=== PATIENT | female | born 1990 | race American Indian/Alaskan Native ===

== ENCOUNTER 2018-09-06 16:28 | Outpatient (CLI) | payer MEDICAID ==
[2018-09-06 16:56] LABS: Hematocrit 27.4 % (30.3-42.9); Mean Corpuscular HGB Conc 33 % (30-34); Mean Corpuscular Volume 79 fl (79-97); Platelet Count 307 K/mm3 (140-440); Red Blood Count 3.47 M/mm3 (3.65-5.03); Red Cell Distribution Width 15.3 % (13.2-15.2)
[2018-09-06 17:03] LABS: Mean Corpuscular Hemoglobin 26 pg (28-32)
[2018-09-06] MEDS ORDERED: LACTATED RINGERS 500 ML IV ONE (18:14)
[2018-09-06 18:17] VITALS: BP 104/54
[2018-09-06] MEDS ORDERED: DIFLUCAN PO ONE (19:29)
[2018-09-06 19:54] LABS: Bilirubin,Urine NEG (Negative); Blood,Urine NEG (Negative); Color,Urine Yellow (Yellow); Protein,Urine <15 mg/dL mg/dL (Negative)
[2018-09-06 19:55] LABS: Bacteria,Urine 2+ /HPF (Negative); Mucus,Urine FEW /HPF
== END 2018-09-06 20:15 | disposition home or self-care (01) ==
LOC: TRG 16:28
PROVIDERS: ATTEND Obstetrics & Gynecology
DX: O47.02 False labor before 37 completed weeks of gestation, second trimester (principal); O13.2 Gestational [pregnancy-induced] hypertension without significant proteinuria, second trimester; Z3A.26 26 weeks gestation of pregnancy; Z87.891 Personal history of nicotine dependence
CPT/HCPCS: 36415; 59025; 81001; 85027